=== PATIENT | male | born 1945 ===

== ENCOUNTER → 2018-08-10 | Outpatient (CLI) | payer OTHER ==
[~2018-08-10] MED LIST: AVODART0.5 MG; PLETAL100 MG; SYNTHROID137 MCG
== END | disposition home or self-care (01) ==
LOC: MRI 09:13
DX: G20 Parkinson's disease (principal); G24.3 Spasmodic torticollis
CPT/HCPCS: 72141

== ENCOUNTER 2018-08-18 12:32 | Outpatient (CLI) | payer OTHER | END 2018-08-18 12:38 | disposition home or self-care (01) | LOC: LAB 12:32 | DX: Z01.812 Encounter for preprocedural laboratory examination (principal); Z01.811 Encounter for preprocedural respiratory examination ==

== ENCOUNTER 2019-04-21 09:39 | Outpatient (CLI) | payer OTHER | END 2019-04-21 09:57 | disposition home or self-care (01) | LOC: MRI 09:39 | DX: M60.89 Other myositis, multiple sites (principal); M54.17 Radiculopathy, lumbosacral region | CPT/HCPCS: 72148 ==